=== PATIENT | female | born 1995 | race Two or more races ===

== ENCOUNTER 2017-06-16 04:22 | Emergency (ER) | payer SELFPAY ==
[~2017-06-16] VITALS: Ht 157.5 cm; Wt 65.8 kg
[2017-06-16 04:48] VITALS: BP 112/68
== END 2017-06-16 05:00 | disposition left against medical advice (07) ==
LOC: EDBD 04:22 → ER 04:26
DX: R42 Dizziness and giddiness (principal); Z53.21 Procedure and treatment not carried out due to patient leaving prior to being seen by health care provider